=== PATIENT | male | born 1965 | race Caucasian/White ===

== ENCOUNTER → 2021-12-31 06:54 | Outpatient (CLI) | payer OTHER, SELFPAY ==
[2021-12-31 08:34] LABS: Alanine Aminotransferase 27 IU/L (<50); Albumin 4.3 g/dL (3.5-5.0); Albumin Globulin Ratio 1.7 (1.0-2.8); Alkaline Phosphatase 31 U/L (38-126); Aspartate Aminotransferase 27 IU/L (17-59); BUN Creatinine Ratio 18.3 (6-22); Bilirubin Total 0.6 mg/dL (0.2-1.3); Blood Urea Nitrogen 17 mg/dL (9-20); Calcium 8.9 mg/dL (8.4-10.2); Carbon Dioxide 27 mmol/L (22-32); Chloride 103 mmol/L (98-107); Cholesterol 201 mg/dL (140-199); Estimated Glomerular Filt Rate > 60 mL/min (>60); Globulin 2.5 g/dL (1.7-4.1); Glucose 96 mg/dL (70-100); HDL Cholesterol 42 mg/dL (40-60); HEMOLYSIS < 15 (0-50); LDL Cholesterol Calculated 131 mg/dL (<100); Potassium 4.2 mmol/L (3.4-5.1); Sodium 139 mmol/L (137-145); Total Protein 6.8 g/dL (6.3-8.2); Triglycerides 142 mg/dL (35-150)
[2021-12-31 09:04] LABS: Prostate Specific Antigen Scrn 0.845 ng/mL (0.1-4.0)
[2021-12-31 09:06] LABS: TSH w/ Reflex to FT4 2.53 uIU/mL (0.47-4.68)
== END ==
PROVIDERS: PCP Internal Medicine; Referring Provider Internal Medicine; Visit Provider Internal Medicine
DX: E78.2 Mixed hyperlipidemia (principal); F41.1 Generalized anxiety disorder; I10 Essential (primary) hypertension; Z12.5 Encounter for screening for malignant neoplasm of prostate
CPT/HCPCS: 36415; 80053; 80061; 84443; G0103

== ENCOUNTER → 2022-12-31 09:51 | Outpatient (CLI) | payer OTHER, SELFPAY ==
[2022-12-31 14:54] LABS: Alanine Aminotransferase 62 IU/L (<50); Albumin 4.1 g/dL (3.5-5.0); Albumin Globulin Ratio 1.5 (1.0-2.8); Alkaline Phosphatase 29 U/L (38-126); Aspartate Aminotransferase 45 IU/L (17-59); BUN Creatinine Ratio 20.2 (6-22); Bilirubin Total 0.6 mg/dL (0.2-1.3); Blood Urea Nitrogen 17 mg/dL (9-20); Calcium 8.9 mg/dL (8.4-10.2); Carbon Dioxide 28 mmol/L (22-32); Chloride 103 mmol/L (98-107); Cholesterol 192 mg/dL (140-199); Estimated Glomerular Filt Rate > 60 mL/min (>60); Globulin 2.7 g/dL (1.7-4.1); Glucose 91 mg/dL (70-100); HDL Cholesterol 46 mg/dL (40-60); HEMOLYSIS < 15 (0-50); LDL Cholesterol Calculated 129 mg/dL (<100); Potassium 4.1 mmol/L (3.4-5.1); Sodium 137 mmol/L (137-145); Total Protein 6.8 g/dL (6.3-8.2); Triglycerides 87 mg/dL (35-150)
[2022-12-31 15:24] LABS: Prostate Specific Antigen Scrn 0.857 ng/mL (0.1-4.0)
== END ==
PROVIDERS: PCP Internal Medicine; Referring Provider Internal Medicine; Visit Provider Internal Medicine
DX: E78.2 Mixed hyperlipidemia (principal); I10 Essential (primary) hypertension; N13.8 Other obstructive and reflux uropathy; N40.1 Benign prostatic hyperplasia with lower urinary tract symptoms; Z12.5 Encounter for screening for malignant neoplasm of prostate
CPT/HCPCS: 36415; 80053; 80061; G0103

== ENCOUNTER → 2023-01-26 07:48 | Outpatient (CLI) | payer OTHER, SELFPAY ==
--- NOTE | 2023-01-27 10:04 | DI.NM.S_ITS ---
DATE OF SERVICE: 01/26/2023 PROCEDURE: Exercise treadmill stress test without imaging. ORDERING PROVIDER: Leon Arce MD. INDICATIONS: The patient is a 57-year-old male with atypical left chest discomfort and exertional dyspnea. FINDINGS: 1. The patient was able to exercise for 9 minutes and 36 seconds on a standard Willie protocol suggesting average exercise capacity with an OLIVER of -2%, achieving 10.4 METS. 2. He had a normal heart rate response to exercise, achieving a maximum heart rate of 152 BPM (93% of his predicted maximum). He had a borderline hypertensive blood pressure response to exercise with a resting blood pressure of 122/82 that increased to a maximum of 202/102. 3. He developed a very focal, pinpoint, left upper chest discomfort at peak exercise without radiation, but had no other anginal-type symptoms. 4. His resting ECG showed sinus rhythm with normal ST segments. With exercise, there were no significant ST-segment shifts or arrhythmias. IMPRESSION: 1. Normal exercise treadmill study for ischemia. 2. Average exercise capacity with atypical chest discomfort at peak exercise and a mild hypertensive blood pressure response but no ST-segment shifts or arrhythmias. Ajay Pelon - MIREILLE/michael/erika doc#: [id number]/job#: [id number] dd: 01/26/2023 12:47:00 dt: 01/26/2023 22:44:00 DICTATING /COPIES TO: Gavino Gillespie MD; MAGDALENO Stanley COPIES MNE: CRISTHIAN;
== END ==
PROVIDERS: PCP Internal Medicine; Referring Provider Internal Medicine; Visit Provider Internal Medicine
DX: R07.89 Other chest pain (principal); R06.09 Other forms of dyspnea
CPT/HCPCS: 93017

== ENCOUNTER → 2023-03-28 14:53 | Outpatient (CLI) | payer OTHER, SELFPAY ==
--- NOTE | 2023-03-28 14:55 | DI.RAD.S_ITS ---
PROCEDURE: XR CHEST 2V INDICATIONS: chest pain TECHNIQUE: 2 views of the chest were acquired. COMPARISON: [facility], , CHEST 1 VIEW, 01/20/2014, 22:30. FINDINGS: Surgical changes and devices: None. Lungs and pleura: Lungs are clear. No pleural effusions or pneumothorax. Mediastinum: Mediastinal contours are normal. Heart size is normal. Bones and chest wall: No suspicious bony abnormalities. Soft tissues appear unremarkable. IMPRESSION: No acute cardiopulmonary process. Dictated by: Mick Gutiérrez M.D. on 03/28/2023 at 15:42 Approved by: Mick Gutiérrez M.D. on 03/28/2023 at 15:43
== END ==
PROVIDERS: PCP Internal Medicine; Referring Provider Student in an Organized Health Care Education/Training Program; Visit Provider Student in an Organized Health Care Education/Training Program
DX: R07.9 Chest pain, unspecified (principal)
CPT/HCPCS: 71046

== ENCOUNTER → 2024-01-06 08:09 | Outpatient (CLI) | payer OTHER, SELFPAY ==
[2024-01-06 10:45] LABS: Add Manual Diff / Slide Review NO; Basophils Absolute Auto 0 /uL (0-100); Basophils Percent Auto 0.6 % (0-2); Eosinophils Absolute Auto 200 /uL (0-450); Eosinophils Percent Auto 2.6 % (2-4); Hematocrit 41.5 % (41-53); Lymphocytes Absolute Auto 1600 /uL (1100-4500); Lymphocytes Percent Auto 26.9 % (25-40); Mean Corpuscular HGB Conc 33.8 % (30-36); Mean Corpuscular Hemoglobin 30.1 PG (26-34); Mean Corpuscular Volume 88.9 fL (80-100); Monocytes Absolute Auto 500 /uL (0-900); Monocytes Percent Auto 9.1 % (3-14); Neutrophils Absolute Auto 3600 /uL (1500-7000); Neutrophils Percent Auto 60.8 % (50-75); Platelet Count 217 X10^3/uL (150-400); Red Blood Cell Count 4.67 X10^6/uL (4.5-5.9); Red Cell Distribution Width 13.2 % (11.6-14.8); White Blood Cell Count 5.9 X10^3/uL (4.5-11.0)
[2024-01-06 11:12] LABS: Alanine Aminotransferase 38 IU/L (<50); Albumin 4.2 g/dL (3.5-5.0); Albumin Globulin Ratio 1.6 (1.0-2.8); Alkaline Phosphatase 33 U/L (38-126); Aspartate Aminotransferase 26 IU/L (17-59); BUN Creatinine Ratio 18.4 (6-22); Bilirubin Total 0.5 mg/dL (0.2-1.3); Blood Urea Nitrogen 16 mg/dL (9-20); Calcium 9.1 mg/dL (8.4-10.2); Carbon Dioxide 27 mmol/L (22-32); Chloride 107 mmol/L (98-107); Cholesterol 180 mg/dL (140-199); Estimated Glomerular Filt Rate > 60 mL/min (>60); Globulin 2.7 g/dL (1.7-4.1); Glucose 103 mg/dL (70-100); HDL Cholesterol 46 mg/dL (40-60); HEMOLYSIS < 15 (0-50); LDL Cholesterol Calculated 113 mg/dL (<100); Potassium 4.5 mmol/L (3.4-5.1); Sodium 140 mmol/L (137-145); Total Protein 6.9 g/dL (6.3-8.2); Triglycerides 103 mg/dL (35-150)
[2024-01-06 11:35] LABS: Prostate Specific Antigen Scrn 1.01 ng/mL (0.1-4.0)
== END ==
PROVIDERS: PCP Internal Medicine; Referring Provider Internal Medicine; Visit Provider Internal Medicine
DX: Z12.5 Encounter for screening for malignant neoplasm of prostate (principal); I10 Essential (primary) hypertension; E78.2 Mixed hyperlipidemia
CPT/HCPCS: 36415; 80053; 80061; 85025; G0103

== ENCOUNTER → 2024-01-13 06:46 | Outpatient (CLI) | payer OTHER, SELFPAY | LOC: RESP 06:51 | PROVIDERS: PCP Internal Medicine; Referring Provider Internal Medicine; Visit Provider Internal Medicine | DX: R06.02 Shortness of breath (principal); J98.8 Other specified respiratory disorders | CPT/HCPCS: 94060; 94726; 94729 ==

== ENCOUNTER → 2024-08-24 09:46 | Outpatient (CLI) | payer OTHER, SELFPAY | PROVIDERS: PCP Internal Medicine; Referring Provider Internal Medicine; Visit Provider Internal Medicine | DX: N52.9 Male erectile dysfunction, unspecified (principal) | CPT/HCPCS: 36415; 84402; 84403 ==

== ENCOUNTER → 2024-09-12 14:56 | Outpatient (CLI) | payer OTHER, SELFPAY | PROVIDERS: PCP Internal Medicine; Referring Provider Internal Medicine; Visit Provider Internal Medicine | DX: R00.0 Tachycardia, unspecified (principal); R42 Dizziness and giddiness | CPT/HCPCS: 93246; 93248 ==

== ENCOUNTER → 2024-10-05 13:54 | Outpatient (CLI) | payer OTHER, SELFPAY ==
--- NOTE | 2024-10-05 14:03 | DI.ECHO.S_ITS ---
[facility] +---------+ Hospital : : [address] : : [place] : : [id number] : : Phone: [phone] Echocardiogram Report + + :Name: DOM LAUREN Study Date: 10/05/2024 Height: 70 in : :Hospital ReadingLocation: Weight: 250 lb : : Gender: Male BSA: 2.3 m2 : :: 1965 Age: 58 yrs BP: 128/94 mmHg: :Reason For Study: DIZZINESS : :Ordering Physician: LEVY, : :MATEUSZ Pimentel Performed By: Yohan Goodman : :Referring: MATEUSZ LOCKETT : + + Interpretation Summary 1. The left ventricular contractility is normal. Estimated ejection fraction is greater than 55% with no segmental wall motion abnormalities. No LVH. Unable to comment on diastolic function. 2. The right ventricular contractility is normal. 3. All cardiac chambers are normal size. 4. No significant valvular abnormalities. 5. No obvious intracardiac shunts. 6. No obvious masses or thrombi. 7. No hemodynamically significant pericardial effusion. 8. Low right-sided filling pressures. Conclusion: Normal biventricular systolic function with no significant valvular abnormalities. Procedure: A two-dimensional transthoracic echocardiogram with color flow and Doppler was performed. The study quality was technically good. There is no prior echocardiogram noted for this patient. The patient was in normal sinus rhythm during the exam. Left Ventricle: The left ventricle is normal in size. There is normal left ventricular wall thickness. There is no ventricular septal defect visualized. The ejection fraction is estimated to be 60-65%. There are no focal wall motion abnormalities. Diastolic parameters suggest probable normal left ventricular diastolic function and normal filling pressures. Right Ventricle: The right ventricle is normal in size and function. Atria: The left atrial size is normal. Right atrial size is normal. There is no Doppler evidence for an interatrial shunt. Mitral Valve: The mitral valve leaflets are slightly calcified. There is trace mitral regurgitation. Aortic Valve: The aortic valve is trileaflet. The aortic valve opens well. No aortic regurgitation is present. Tricuspid Valve: The tricuspid valve leaflets are thin and pliable. No tricuspid regurgitation. Pulmonic Valve: The pulmonic valve leaflets are thin and pliable; valve motion is normal. There is no pulmonic valvular regurgitation. Great Vessels: The aortic root is normal size. The dimensions of the ascending aorta are normal. The pulmonary artery is normal size. The IVC is of normal diameter and collapses greater than 50% with a sniff. This suggests a low right atrial pressure of 3 mm Hg. Pericardium/ Pleura There is no pericardial effusion. There is no pleural effusion. MMode/2D Measurements & Calculations LVIDd: 4.3 cm LVOT diam: 2.1 cm LVIDs: 2.7 cm Ao root diam: 3.1 cm FS: 37.6 % asc Aorta Diam: 3.4 cm EPSS: 0.65 cm Ao Arch Diam (Prox Trans): 2.7 cm IVSd: 1.0 cm LVPWd: 1.1 cm LV mcmullen. diameter/BSA (cm/m^2): 1.9 LV sys. diameter/BSA (cm/m^2): 1.2 LA A2 area: 21.6 cm2 RA long axis: 4.1 cm LA A4 area: 24.7 cm2 RA area: 11.0 cm2 LA length (vol): 6.0 cm RA vol: 24.8 ml LA vol: 75.0 ml RA : 10.8 ml/m2 LA vol index: 32.7 ml/m2 IVC diam: 1.7 cm RVD1 (basal): 3.5 cm RVD2 (mid): 2.9 cm TAPSE: 2.1 cm Doppler Measurements & Calculations Ao V2 max: 139.4 cm/sec LVOT Max Gerson: 123.6 cm/sec Ao V2 mean: 103.5 cm/sec LV V1 max P.1 mmHg Ao max P.8 mmHg LV V1 VTI: 25.5 cm Ao mean P.6 mmHg MITZI(I,D): 3.0 cm2 Ao V2 VTI: 30.3 cm MITZI(V,D): 3.2 cm2 sev ratio: 0.84 MITZI indexed to BSA (cm^2/m^2): 1.3 MV E max gerson: 80.3 cm/sec PA V2 max: 71.9 cm/sec MV A max gerson: 64.3 cm/sec PA V2 mean: 49.3 cm/sec MV E/A: 1.2 PA mean P.1 mmHg Med Peak E' Gerson: 5.9 cm/sec PA pr(Accel): 43.0 mmHg E/E' med: 13.5 Lat Peak E' Gerson: 10.4 cm/sec E/E' lat: 7.7 E/e' average: 10.6 MV dec time: 0.18 sec SV(LVOT): 92.0 ml Reading Physician:
== END ==
LOC: ECHO 13:55
PROVIDERS: PCP Internal Medicine; Referring Provider Internal Medicine; Visit Provider Internal Medicine
DX: R42 Dizziness and giddiness (principal); R00.0 Tachycardia, unspecified
CPT/HCPCS: 93306

== ENCOUNTER 2024-11-29 07:37 | Day surgery (SDC) | payer OTHER, SELFPAY ==
[2024-11-29] MEDS: LACTATED RINGERS 1,000 ML 42 ML IV (07:46)
[2024-11-29 07:57] VITALS: BP 143/81; PULSE 76; RESP 18; TEMP 36.6; O2SAT 97
--- NOTE | 2024-11-29 08:36 | PM.HP.IH.1 ---
History of Present Illness History of Present Illness Date Patient Seen: 11/29/24 Time Patient Seen: 08:36 Chief complaint: Dx Colonoscopy w/poss bx Narrative: Jah is a 59-year-old man who presents with rectal bleeding. See the office note from September for details. He has increased his dietary fiber with minimal improvement in his symptoms. [facility] Medical History (Updated 11/29/24 @ 08:36 by Ge Alaom MD) Rectal Hemorrhage Sleep-related movement disorder BPH w urinary obs/LUTS Carpal tunnel syndrome Generalized anxiety disorder Essential hypertension Depression Mixed hyperlipidemia Benign positional vertigo Surgical History Status post inguinal hernia repair (~2007) S/P carpal tunnel release (~2009) Social History Smoking Status: Former smoker alcohol intake: current Meds Home Medications and Allergies Home Medications Medication Instructions Recorded Confirmed Type aspirin 81 mg tablet,delayed 162 mg PO DAILY 12/31/22 11/29/24 History release (Adult Aspirin Regimen) amlodipine 5 mg tablet 5 mg PO DAILY #90 tabs 01/02/24 11/29/24 Rx fluoxetine 20 mg capsule 20 mg PO BID #180 caps 01/02/24 11/29/24 Rx pravastatin 80 mg tablet 80 mg PO DAILY #90 tabs 01/02/24 11/02/24 Rx tadalafil 5 mg tablet 5 mg PO DAILY #90 tabs 08/24/24 11/02/24 Rx sodium,potassium,mag sulfates 17.5 See Rx Instructions PO .COMPLEX 10/04/24 11/02/24 Rx gram-3.13 gram-1.6 gram oral soln #354 mL (Suprep Bowel Prep Kit) nortriptyline 10 mg capsule 20 mg (2 x 10 mg) PO BEDTIME #180 11/02/24 11/02/24 Rx caps Allergies Allergy/AdvReac Type Severity Reaction Status Date / Time No Known Drug Allergies Allergy Verified 11/02/24 14:36 Exam Vital Signs (past 8 hours): - 11/29/24 07:57 Temperature 98 F Pulse Rate 76 Respiratory Rate 18 Blood Pressure 143/81 H Pulse Oximetry 97 Oxygen Delivery Method Room Air Oxygen Delivery Method Room Air Const General: No acute distress Resp Effort & Inspection: normal respiratory effort Assessment & Plan Assessment and plan (1) Rectal Hemorrhage: Status: Acute Plan Colonoscopy Time-Based Coding :: [TOTAL MINUTES] spent with patient and on the chart (including review of chart, obtaining history, exam, reviewing outside data, placing orders, documenting exam and treatment plan, and counseling patient) on [DATE]. PROFEE Exhibition Designer Document charge(s): No
[2024-11-29 09:12] VITALS: BP 141/94; PULSE 77; RESP 18; TEMP 36.3; O2SAT 95
--- NOTE | 2024-11-29 09:14 | PM.OP.COLON ---
Operative Date/Time/Diagnoses Date of procedure: 11/29/24 Time of procedure: 09:14 Pre-op diagnosis: Rectal bleeding Post-op diagnosis: same Procedure & Clinicians Study performed: Colonoscopy Same procedure as scheduled: Yes Surgeon: Ge Alamo Procedure Notes Procedure in detail: Surgeon: Ge Alamo MD Anesthesia: Mireya Porter Procedure: The patient was brought to the endoscopy suite, placed in left lateral decubitus position. The patient was connected to monitoring devices. A time-out was performed. Sedation was administered. Once the patient was adequately sedated, a digital rectal exam was performed and was normal. The scope was then inserted and advanced to the cecum where the appendiceal orifice was identified and photographed. The scope was then slowly withdrawn over greater than 6 minutes. The mucosa was thoroughly inspected. No abnormalities were found. The scope was retroflexed in the rectum. Mild internal hemorrhoids were noted. The scope was straightened and removed. The patient was awakened and brought to recovery. Scope withdrawal time: 6 minutes Sedation time: 26 minutes EBL: 0 Findings: Mild internal hemorrhoids Post-procedure Recommendations: Colonoscopy in 10 years Disposition: PACU
[2024-11-29 09:17] VITALS: BP 120/86; PULSE 76; RESP 16; O2SAT 94
[2024-11-29 09:22] VITALS: BP 131/84; PULSE 74; RESP 17; O2SAT 93
[2024-11-29 09:28] VITALS: BP 135/91; PULSE 70; RESP 15; TEMP 36.2; O2SAT 96
== END 2024-11-29 09:45 | disposition home or self-care (01) ==
PROVIDERS: PCP Internal Medicine; Referring Provider Surgery; Visit Provider Surgery
PROC: 0DJD8ZZ Inspection of Lower Intestinal Tract, Via Natural or Artificial Opening Endoscopic (ICD-10-PCS; CPT 45378; principal; 2024-11-29 08:45)
DX: K62.5 Hemorrhage of anus and rectum (principal); K64.8 Other hemorrhoids
CPT/HCPCS: 45378; J2405; J2704

== ENCOUNTER 2025-05-23 14:50 | Emergency (ER) | payer OTHER, SELFPAY ==
[2025-05-23 14:56] VITALS: BP 161/86; PULSE 82; RESP 16; TEMP 36.6; O2SAT 96; BMI 35.2
--- NOTE | 2025-05-23 15:22 | DI.CT.S_ITS ---
PROCEDURE: CT ABDOMEN PELVIS W CON INDICATIONS: abd pain TECHNIQUE: After the administration of intravenous contrast, axial sections acquired from the lung bases to the pubic symphysis. Coronal and sagittal reformats were performed. For radiation dose reduction, the following was used: automated exposure control, adjustment of mA and/or kV according to patient size. COMPARISON: None. FINDINGS: Image quality: Diagnostic. Lower Chest: Bibasilar atelectasis. Triple-vessel coronary artery calcifications. ABDOMEN: Liver: No solid mass. Gallbladder: No radiopaque gallstones or wall thickening. Biliary ducts: No biliary dilation. Pancreas: No ductal dilation. Spleen: Size is within normal limits. Adrenal Glands: No adrenal nodules. Kidneys and Ureters: No hydronephrosis. No solid mass. No complex renal cystic lesion which requires follow up. Stomach and Bowel: Normal colonic caliber, without significant wall thickening. Normal appendix. Peritoneum: No abnormal intraperitoneal fluid. No free air. Misting of the omental fat along the anterior mid abdominal wall measures approximately 3.7 x 5 cm (; ). Ventral Wall: Small periumbilical fat containing hernia. Abdominal Nodes: No retroperitoneal or mesenteric adenopathy by size criteria. Vessels: Aorta and inferior vena cava are normal in size. PELVIS: Pelvic Organs: Unremarkable. Bladder: No bladder wall thickening, accounting for underdistention. Pelvic Nodes: No enlarged lymph nodes. Miscellaneous: No inguinal hernias are seen. Bones: No aggressive osseous abnormality. IMPRESSION: 1. 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 2. Moderate coronary artery calcifications. Correlate with risk factors, symptoms, and consider cardiology referral versus lifestyle modifications. Dictated by: Jw Pena M.D. on 05/23/2025 at 15:57 Approved by: Jw Pena M.D. on 05/23/2025 at 16:01
--- NOTE | 2025-05-23 15:30 | ED_ITS ---
HPI - Abdominal Pain General Chief Complaint: Abdominal Pain Stated Complaint: sent from [facility] lower stomach pain x 1 day Time Seen by Provider: 05/23/25 15:22 History of Present Illness HPI narrative: 59-year-old gentleman presents with periumbilical pain that started yesterday and has now started again today feels a bit worse but not associated with nausea, vomiting,diarrhea, back pain, dysuria rectal bleeding. His last bowel movement was earlier today and was a small amount. He denies any chest pain shortness of breath testicular pain urinary complaints. His only significant history is he had for surgery is he had a right inguinal hernia repair many years ago. He did have a colonoscopy in the past couple of years that did not show any acute process. Other than what is stated 14 point review system is negative. Related Data Home Medications ?Medication ?Instructions ?Recorded ?Confirmed aspirin 81 mg tablet,delayed 162 mg PO DAILY 12/31/22 12/17/24 release (Adult Aspirin Regimen) Previous Rx's ?Medication ?Instructions ?Recorded nortriptyline 10 mg capsule 20 mg (2 x 10 mg) PO BEDTI ME #180 11/02/24 caps amlodipine 5 mg tablet 5 mg PO DAILY #90 tabs 01/14 fluoxetine 20 mg capsule 20 mg PO BID #180 caps 01/21 pravastatin 80 mg tablet 80 mg PO DAILY #90 tabs 01/03 05/30 tadalafil 5 mg tablet 5 mg PO DAILY #90 tabs 01/21 hydrocodone 5 mg-acetaminophen 325 1 tab PO Q4-6H PRN pain #20 tabs 05/23/25 mg tablet Allergies Allergy/AdvReac Type Severity Reaction Status Date / Time No Known Drug Allergies Allergy Verified 12/17/24 16:02 Review of Systems Review of Systems ROS Unobtainable: All systems reviewed & are unremarkable except as noted in HPI and below Patient History Medical History (Updated 05/23/25 @ 16:12 by Leon Lake DO) Sleep-related movement disorder BPH w urinary obs/LUTS Carpal tunnel syndrome Generalized anxiety disorder Essential hypertension Depression Mixed hyperlipidemia Benign positional vertigo Surgical History Status post inguinal hernia repair (~2007) S/P carpal tunnel release (~2009) Social History alcohol intake: current Exam Narrative Exam Narrative: GENERAL: [59] year old patient appears stated age. Well-developed patient, in mild distress. HEAD: Atraumatic. Normocephalic. EYES: Pupils equal round and reactive. Extraocular motions intact. No scleral icterus. No injection or drainage. ENT: Nose without bleeding, purulent drainage. Throat without erythema, tonsillar hypertrophy or exudate. Airway patent. NECK: Trachea midline. Non tender CARDIOVASCULAR: Regular rate and rhythm without murmurs, gallops, or rubs. RESPIRATORY: Clear to auscultation. Breath sounds equal bilaterally. No wheezes, rales, or rhonchi. GASTROINTESTINAL: Abdomen soft, non-tender, nondistended. Umbilical hernia soft reducible mildly red EXTREMITIES: No edema or joint tenderness. BACK: Nontender without deformity or crepitance. No flank tenderness. NEURO: AOx3. SKIN: No rash or erythema of visible areas Initial Vital Signs Initial Vital Signs: Vital Signs Temperature 97.8 F 05/23/25 14:56 Pulse Rate 82 05/23/25 14:56 Respiratory Rate 16 05/23/25 14:56 Blood Pressure 161/86 H 05/23/25 14:56 Pulse Oximetry 96 05/23/25 14:56 Oxygen Delivery Method Room Air 05/23/25 14:56 Course Orders Ordered: ED Orders 05/23/25 15:03 Complete Blood Count AUTO DIFF Stat Comprehensive Metabolic Panel Stat Lipase Stat EKG-12 Lead Stat 05/23/25 15:22 CT abdomen pelvis w con Stat Lactated Ringer's (Lactated Ringers) 1,000 mls @ 1,000 mls/hr IV BOLUS ONE Stop: 05/23/25 16:21 Ondansetron HCl (Ondansetron 4 Mg/2 Ml Inj) 4 mg IV NOW PRN PRN Reason: Nausea And Vomiting Ondansetron HCl (Ondansetron 4 Mg Odt) 4 mg PO NOW PRN PRN Reason: Nausea And Vomiting Discontinued Medications Ketorolac Tromethamine (Ketorolac 30 Mg/Ml Vial) 15 mg IV NOW ONE Stop: 05/23/25 15:23 Vital Signs Vital signs: Vital Signs - 8 hr 05/23/25 14:56 Temperature 97.8 F Pulse Rate 82 Respiratory Rate 16 Blood Pressure 161/86 H Pulse Oximetry 96 Oxygen Delivery Method Room Air MDM - Abdominal Pain Imaging Data CT scan - abdomen/pelvis: Radiologist's Impression: [address] [address] [address] Scan Report Signed Patient: Pelon Moss MR#: [id number] : 1965 Acct:[id number] Age/Sex: 59 / M Date of Service: 05/23/25 Loc: ED Accession Number: [id number] Procedure: CT abdomen pelvis w con Ordering Provider: Leon Lake D.O. PROCEDURE: CT ABDOMEN PELVIS W CON INDICATIONS: abd pain TECHNIQUE: After the administration of intravenous contrast, axial sections acquired from the lung bases to the pubic symphysis. Coronal and sagittal reformats were performed. For radiation dose reduction, the following was used: automated exposure control, adjustment of mA and/or kV according to patient size. COMPARISON: None. FINDINGS: Image quality: Diagnostic. Lower Chest: Bibasilar atelectasis. Triple-vessel coronary artery calcificat ions. ABDOMEN: Liver: No solid mass. Gallbladder: No radiopaque gallstones or wall thickening. Biliary ducts: No biliary dilation. Pancreas: No ductal dilation. Spleen: Size is within normal limits. Adrenal Glands: No adrenal nodules. Kidneys and Ureters: No hydronephrosis. No solid mass. No complex renal cystic lesion which requires follow up. Stomach and Bowel: Normal colonic caliber, without significant wall thickening. Normal appendix. Peritoneum: No abnormal intraperitoneal fluid. No free air. Misting of the omental fat along the anterior mid abdominal wall measures approximately 3.7 x 5 cm (; ). Ventral Wall: Small periumbilical fat containing hernia. Abdominal Nodes: No retroperitoneal or mesenteric adenopathy by size criteria. Vessels: Aorta and inferior vena cava are normal in size. PELVIS: Pelvic Organs: Unremarkable. Bladder: No bladder wall thickening, accounting for underdistention. Pelvic Nodes: No enlarged lymph nodes. Miscellaneous: No inguinal hernias are seen. Bones: No aggressive osseous abnormality. IMPRESSION: 1. 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 2. Moderate coronary artery calcifications. Correlate with risk factors, symptoms, and consider cardiology referral versus lifestyle modifications. MDM Narrative Medical decision making narrative: All lab work vital signs nurse triage note medication list previous ER visits in all all reviewed. Omental fat stranding along the anterior abdominal wall likely represents an omental fat infarction.. Moderate coronary artery calcifications. WBC normal glucose 119 alk-phos 37 rest of LFTs and lipase were normal. Case discussed with Dr. Alamo surgery on-call who will follow up with patient has outpatient for outpatient surgery. Differential diagnosis incarceration, strangulated hernia, bowel obstruction, diverticulitis, constipation. Discharge Plan Departure Patient Disposition: Home Clinical Impression: Hernia, umbilical Qualifiers: Obstruction and gangrene presence: without obstruction or gangrene Qualified Code(s): K42.9 - Umbilical hernia without obstruction or gangrene Instructions: DI Umbilical Hernia-Child Activity Restrictions/Additional Instructions: Return with. new or worsening symptoms. Please follow up with Dr. Alamo surgery in regarding umbilical hernia repair. Prescriptions: New hydrocodone-acetaminophen 5-325 mg tablet 1 tab PO Q4-6H PRN (Reason: pain) Qty: 20 0RF No Action aspirin [Adult Aspirin Regimen] 81 mg tablet,delayed release (DR/EC) 162 mg PO DAILY amlodipine 5 mg tablet 5 mg PO DAILY Qty: 90 3RF fluoxetine 20 mg capsule 20 mg PO BID Qty: 180 3RF pravastatin 80 mg tablet 80 mg PO DAILY Qty: 90 3RF tadalafil 5 mg tablet 5 mg PO DAILY Qty: 90 3RF nortriptyline 10 mg capsule 20 mg PO BEDTIME Qty: 180 3RF Referrals: Leon Arce MD [Primary Care Provider, Internal Medicine] Stand Alone Forms: Patient Portal/API
[2025-05-23 15:46] LABS: Add Manual Diff / Slide Review NO; Hematocrit 40.6 % (41-53); Hemoglobin 14.5 g/dL (13.5-17.5); Lymphocytes Absolute Auto 1600 /uL (1100-4500); Mean Corpuscular HGB Conc 35.6 % (30-36); Mean Corpuscular Hemoglobin 30.6 PG (26-34); Mean Corpuscular Volume 86.0 fL (80-100); Platelet Count 203 X10^3/uL (150-400)
[2025-05-23 16:01] LABS: Alanine Aminotransferase 33 IU/L (<50); Albumin 4.6 g/dL (3.5-5.0); Albumin Globulin Ratio 1.4 (1.0-2.8); Alkaline Phosphatase 37 U/L (38-126); Blood Urea Nitrogen 14 mg/dL (9-20); Calcium 9.2 mg/dL (8.4-10.2); Carbon Dioxide 26 mmol/L (22-32); Chloride 103 mmol/L (98-107); Estimated Glomerular Filt Rate > 60 mL/min (>60); Globulin 3.2 g/dL (1.7-4.1); Glucose 119 mg/dL (70-99); HEMOLYSIS 15 (0-50); Lipase 71 U/L (23-300); Potassium 3.9 mmol/L (3.4-5.1); Sodium 138 mmol/L (137-145); Total Protein 7.8 g/dL (6.3-8.2)
[2025-05-23] MEDS: KETOROLAC 30 MG/ML VIAL 15 MG IV (16:17)
[2025-05-23] MEDS: LACTATED RINGERS 1,000 ML 1000 ML IV (16:18)
[2025-05-23 16:37] VITALS: BP 150/88; PULSE 76; RESP 16; O2SAT 98
== END 2025-05-23 16:40 | disposition home or self-care (01) ==
PROVIDERS: Emergency Provider Family Medicine; PCP Internal Medicine
DX: K42.9 Umbilical hernia without obstruction or gangrene (principal); R11.2 Nausea with vomiting, unspecified; R19.7 Diarrhea, unspecified; R30.0 Dysuria; K62.5 Hemorrhage of anus and rectum
CPT/HCPCS: 36415; 74177; 80053; 83690; 85025; 96374; 99284; J1885; Q9967

== ENCOUNTER → 2025-07-12 08:13 | Outpatient (CLI) | payer OTHER, SELFPAY ==
--- NOTE | 2025-07-12 08:14 | DI.NM.S_ITS ---
PROCEDURE: NM EXERCISE TREADMILL NON NUC
== END ==
LOC: NUCM 08:13
PROVIDERS: PCP Internal Medicine; Referring Provider Internal Medicine; Visit Provider Internal Medicine
DX: R93.1 Abnormal findings on diagnostic imaging of heart and coronary circulation (principal); R07.9 Chest pain, unspecified; R06.09 Other forms of dyspnea
CPT/HCPCS: 93017